=== PATIENT | female | born 1985 | race Two or more races ===

== ENCOUNTER 2018-08-29 07:42 | Emergency (ER) | payer BC, OTHER ==
[~2018-08-29] VITALS: Ht 162.6 cm; Wt 107.7 kg
[2018-08-29 07:46] VITALS: BP 143/96
[2018-08-29] MEDS ORDERED: DEXAMETHASONE 4 MG/ML, 1ML ONE (08:11)
[2018-08-29] MEDS ORDERED: HYDROcodone/APAP 7.5-325MG/15ML UDC ONE (08:12)
--- NOTE | 2018-08-29 08:24 | NUR ---
32 y/o female presents to ed with c/o SWOLLEN TONSILS, COUGH AND CONGESTION. PT GIVEN MASK AND ASKED TO WEAR. NO ACUTE DISTRESS NOTED.
[2018-08-29] MEDS ORDERED: HYDROcodone/APAP 7.5-325MG/15ML UDC PO ONE (08:30)
[2018-08-29] MEDS ORDERED: DEXAMETHASONE 4 MG/ML, 1ML PO ONE (08:30)
[2018-08-29 08:43] LABS: RAPID INFLUENZA A Negative (Negative); RAPID INFLUENZA B Negative (Negative)
--- NOTE | 2018-08-29 09:38 | NUR ---
Patient/Caregiver given discharge instructions and they have confirmed that they understand the instructions. Patient ambulatory with steady gait. pt left with all personal belongings.
== END 2018-08-29 09:43 ==
LOC: ED 09:38
DX: B34.9 Viral infection, unspecified (principal)
CPT/HCPCS: 87081; 87400; 87880; 99283; J1100